=== PATIENT | female | born 1990 | race Two or more races ===

== ENCOUNTER → 2019-02-02 | Outpatient (CLI) | payer OTHER | END | disposition home or self-care (01) | LOC: PRENATAL 11:00 | DX: O99.89 Other specified diseases and conditions complicating pregnancy, childbirth and the puerperium (principal); O09.92 Supervision of high risk pregnancy, unspecified, second trimester ==

== ENCOUNTER → 2019-03-24 | Outpatient (CLI) | payer OTHER | END | disposition home or self-care (01) | LOC: PRENATAL 08:00 | DX: O99.89 Other specified diseases and conditions complicating pregnancy, childbirth and the puerperium (principal); O09.92 Supervision of high risk pregnancy, unspecified, second trimester ==

== ENCOUNTER 2019-05-30 10:06 | Inpatient (IN) | payer OTHER ==
[~2019-05-30] VITALS: Ht 162.6 cm; Wt 72.1 kg
[2019-06-10] MEDS ORDERED: SYNTHROID75 MCG PO (22:20)
[2019-06-10] MEDS ORDERED: PRENATAL CAPLE1 EAC1 PO (22:20)
== END 2019-06-13 15:27 | DRG 807 ==
LOC: OB/GYN 06-06 13:45 → LDR 06-10 20:57 → OB/GYN 06-10 20:57 → LDR 06-16 13:45
PROVIDERS: ADMIT Obstetrics & Gynecology
PROC: 4A1HXCZ Monitoring of Products of Conception, Cardiac Rate, External Approach (ICD-10-PCS; 2019-06-10)
PROC: 10E0XZZ Delivery of Products of Conception, External Approach (ICD-10-PCS; principal; 2019-06-11)
PROC: 0KQM0ZZ Repair Perineum Muscle, Open Approach (ICD-10-PCS; 2019-06-11)
PROC: 4A033R1 Measurement of Arterial Saturation, Peripheral, Percutaneous Approach (ICD-10-PCS; 2019-06-11)
DX: O70.1 Second degree perineal laceration during delivery (principal); Z37.0 Single live birth; Z3A.39 39 weeks gestation of pregnancy